=== PATIENT | male | born 1935 | race Caucasian/White ===

== ENCOUNTER 2018-12-05 14:04 | Emergency (ER) | payer OTHER, MEDICARE ==
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
[2018-12-05 14:36] VITALS: BP_SYST 98
[2018-12-05] MEDS ORDERED: NS(*) 0.9% 1000 ML BAG 1,000 ML IV ONE (14:43)
[2018-12-05] MEDS ORDERED: DIPHTH/TETANUS/ACEL. PERTUSSIS IM ONE (14:45)
[2018-12-05 14:59] LABS: PLATELET COUNT, AUTOMATED 149 K/uL (150-450)
[2018-12-05 16:25] LABS: INR 1.56
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
== END 2018-12-05 15:59 | disposition expired ==
LOC: ER 14:36
DX: I46.9 Cardiac arrest, cause unspecified (principal)
CPT/HCPCS: 31500; 80320; 83690; 84484; 85025; 85049; 85379; 85384; 85610; 85730; 86850; 86900; 86901; 86920; 92950; 99285; J0171; P9016; 82040; 82247; 82310; 82374; 82435; 82565; 82947; 84075; 84132; 84155; 84295; 84450; 84460; 84520

== ENCOUNTER → 2018-12-05 | Outpatient (CLI) | payer OTHER, MEDICARE | LOC: AMB 13:51 | PROVIDERS: ATTEND Nurse Practitioner | DX: I46.9 Cardiac arrest, cause unspecified (principal) | CPT/HCPCS: A0425; A0433 ==